=== PATIENT | female | born 1950 | race Caucasian/White ===

== ENCOUNTER → 2016-12-09 | Outpatient (CLI) | payer OTHER ==
--- NOTE | 2016-12-09 16:34 | PCVCIMAG ---
EXAM: VENOUS DUPLEX LEFT LOWER EXTREMITY INDICATION: Leg pain and swelling. FINDINGS: Left leg: No thrombus in the common femoral, main femoral, or popliteal veins. These veins are compressible with phasic flow. Calf veins are unremarkable where seen. IMPRESSION: No evidence of deep venous thrombosis in left lower extremity as detailed above. LOC:[id number]
== END | disposition home or self-care (01) ==
LOC: PCVCIMAG 14:41
PROVIDERS: ATTEND Internal Medicine
DX: I25.10 Atherosclerotic heart disease of native coronary artery without angina pectoris (principal); E78.5 Hyperlipidemia, unspecified
CPT/HCPCS: 80061; 93971

== ENCOUNTER → 2018-02-23 | Outpatient (CLI) | payer OTHER | END | disposition home or self-care (01) | LOC: PCVCCLINIC 16:07 | PROVIDERS: ATTEND Internal Medicine | DX: I25.10 Atherosclerotic heart disease of native coronary artery without angina pectoris (principal); E78.5 Hyperlipidemia, unspecified; I50.9 Heart failure, unspecified; Z88.8 Allergy status to other drugs, medicaments and biological substances | CPT/HCPCS: 80061 ==

== ENCOUNTER → 2018-02-27 | Outpatient (CLI) | payer OTHER ==
--- NOTE | 2018-02-28 11:23 | PCVCIMAG ---
APPROVED REPORT Study performed: 02/27/2018 15:30:49 EXAM: Comprehensive 2D, Doppler, and color-flow Echocardiogram Patient Location: Echo lab Status: routine BSA: 2.00 HR: 88 bpmBP: 118/78 mmHg Rhythm: NSR Other Information Study Quality: Adequate Risk Factors: Cardiac Risk Factors: HTN, Hyperlipidemia Indications Ischemic cardiomyopathy 2D Dimensions IVSd: 12.12 (7-11mm)LVOT Diam: 20.77 (18-24mm) LVDd: 36.33 mm PWd: 10.91 (7-11mm)Ascending Ao: 38.73 (22-36mm) LVDs: 26.93 (25-40mm) Left Atrium: 27.12 (27-40mm) Aortic Root: 25.40 mm LV Single Plane 4CH: 50.93 % LV Single Plane 2CH: 56.31 % Biplane EF: 52.7 % Volumes Left Atrial Volume (Systole) Single Plane 4CH: 19.53 mLSingle Plane 2CH: 27.59 mL LA ESV Index: 12.00 mL/m2 Aortic Valve AoV Peak Darrell.: 1.35 m/s AO Peak Gr.: 7.32 mmHgLVOT Max P.76 mmHg LVOT Max V: 0.97 m/s CHIO Vmax: 2.43 cm2 Mitral Valve E/A Ratio: 0.6 MV Decel. Time: 248.07 ms MV E Max Darrell.: 0.46 m/s MV A Darrell.: 0.83 m/s IVRT: 134.95 ms Pulmonary Valve PV Peak Gr.: 3.36 mmHg Pulmonary Vein P Vein S: 0.46 m/sP Vein A: 0.34 m/s P Vein D: 0.28 m/sP Vein A Dur.: 93.4 msec P Vein S/D Ratio: 1.64 Tricuspid Valve TR Peak Darrell.: 2.20 m/s TR Peak Gr.: 19.34 mmHg Left Ventricle The left ventricle is normal size. There is normal LV segmental wall motion. There is normal left ventricular wall thickness. Left ventricular systolic function is mildly decreased. LVEF approx 50%. The left ventricular diastolic function is normal. Right Ventricle The right ventricle is normal size. The right ventricular systolic function is normal. Atria The left atrium size is normal. The right atrium size is normal. Aortic Valve The aortic valve is normal in structure. No aortic regurgitation is present. There is no aortic valvular stenosis. Mitral Valve The mitral valve is normal in structure. There is no mitral valve regurgitation noted. No evidence of mitral valve stenosis. Tricuspid Valve The tricuspid valve is normal in structure. Trace tricuspid regurgitation. Pulmonary artery pressure is 27mmHg. Pulmonic Valve The pulmonary valve is normal in structure. There is no pulmonic valvular regurgitation. Great Vessels The aortic root is normal in size. IVC is normal in size and collapses >50% with inspiration. Pericardium There is no pericardial effusion. <Conclusion> The left ventricle is normal size. LVEF approx 50%. The aortic valve is normal in structure. The mitral valve is normal in structure. The tricuspid valve is normal in structure. Trace tricuspid regurgitation. Pulmonary artery pressure is 27mmHg. The pulmonary valve is normal in structure. There is no pericardial effusion.
== END | disposition home or self-care (01) ==
LOC: PCVCIMAG 15:59
PROVIDERS: ATTEND Internal Medicine
DX: I25.10 Atherosclerotic heart disease of native coronary artery without angina pectoris (principal); I10 Essential (primary) hypertension; E78.5 Hyperlipidemia, unspecified
CPT/HCPCS: 93306

== ENCOUNTER → 2019-03-27 | Outpatient (CLI) | payer BC, OTHER ==
--- NOTE | 2019-03-28 11:36 | PCVCIMAG ---
APPROVED REPORT Study performed: 03/27/2019 15:13:16 EXAM: Comprehensive 2D, Doppler, and color-flow Echocardiogram Patient Location: Echo lab Room #: [id number]: routine BSA: 2.02 HR: 79 bpmBP: 118/74 mmHg Rhythm: LBBB Other Information Study Quality: Adequate Risk Factors: Cardiac Risk Factors: Hyperlipidemia Indications LV Function:Systolic Cardiomyopathy 2D Dimensions IVSd: 9.85 (7-11mm)LVOT Diam: 20.65 (18-24mm) LVDd: 36.82 mm PWd: 9.77 (7-11mm)Ascending Ao: 34.75 (22-36mm) LVDs: 27.15 (25-40mm) Left Atrium: 21.50 (27-40mm) Aortic Root: 23.09 mm LV Single Plane 4CH: 45.84 % LV Single Plane 2CH: 37.96 % Biplane EF: 43.0 % Volumes Left Atrial Volume (Systole) Single Plane 4CH: 18.58 mLSingle Plane 2CH: 21.29 mL Biplane LA Volume: 21.00 mLLA ESV Index: 11.00 mL/m2 Aortic Valve AoV Peak Darrell.: 1.47 m/s AO Peak Gr.: 8.62 mmHgLVOT Max P.60 mmHg LVOT Max V: 0.74 m/s CHIO Vmax: 1.68 cm2 Mitral Valve E/A Ratio: 0.5 MV Decel. Time: 229.40 ms MV E Max Darrell.: 0.39 m/s MV A Darrell.: 0.79 m/s IVRT: 138.41 ms TDI E/Lateral E': 6.50E/Medial E': 7.80 Medial E' Darrell.: 0.05 m/s Lateral E' Darrell.: 0.06 m/s Pulmonary Valve PV Peak Darrell.: 0.86 m/sPV Peak Gr.: 2.97 mmHg Tricuspid Valve TR Peak Darrell.: 1.58 m/s TR Peak Gr.: 9.92 mmHg TV Vmax: 0.74 m/sPA Pressure: 17.00 mmHg Left Ventricle The left ventricle is normal size. Paradoxical septal motion consistent with conduction abnormality. There is global hypokinesis of the left ventricle. There is normal left ventricular wall thickness. Left ventricular systolic function is normal. The left ventricular ejection fraction is within the normal range. LVEF is 40-45%. Grade I - abnormal relaxation pattern. Right Ventricle The right ventricle is normal size. The right ventricular systolic function is normal. Atria The left atrium size is normal. The right atrium size is normal. Aortic Valve Aortic valve is not well visualized. Aortic valve is grossly normal in structure. No aortic regurgitation is present. There is no aortic valvular stenosis. Mitral Valve The mitral valve is normal in structure. There is no mitral valve regurgitation noted. No evidence of mitral valve stenosis. Tricuspid Valve The tricuspid valve is normal in structure. Trace tricuspid regurgitation. No pulmonary hypertension. Pulmonic Valve The pulmonary valve is normal in structure. There is no pulmonic valvular regurgitation. Great Vessels The aortic root is normal in size. The ascending aorta is normal in size. Aortic arch is normal in caliber. IVC is normal in size and collapses >50% with inspiration. Pericardium There is no pericardial effusion. There is no pleural effusion. <Conclusion> The left ventricle is normal size. LVEF is 40-45%. Paradoxical septal motion consistent with conduction abnormality. There is global hypokinesis of the left ventricle. Aortic valve is not well visualized. Aortic valve is grossly normal in structure. The mitral valve is normal in structure. The tricuspid valve is normal in structure. Trace tricuspid regurgitation. No pulmonary hypertension. The pulmonary valve is normal in structure. There is no pericardial effusion.
== END | disposition home or self-care (01) ==
LOC: PCVCIMAG 15:01
PROVIDERS: ATTEND Internal Medicine
DX: I42.9 Cardiomyopathy, unspecified (principal)
CPT/HCPCS: 93306